=== PATIENT | female | born 2005 | race African-American/Black ===

== ENCOUNTER 2023-04-17 15:35 | Emergency (ER) | payer OTHER ==
[~2023-04-17] VITALS: Ht 167.6 cm; Wt 67.0 kg
[2023-04-17 15:43] VITALS: BP 105/68; PULSE 75; RESP 18; TEMP 99; O2SAT 98
[2023-04-17] MEDS ORDERED: ERYT60SO TP (16:38)
[2023-04-17] MEDS ORDERED: BENZ100C86 MT (16:38)
== END 2023-04-17 22:11 | disposition home or self-care (01) ==
LOC: ER 15:35
DX: J06.9 Acute upper respiratory infection, unspecified (principal); H10.9 Unspecified conjunctivitis
CPT/HCPCS: 99281; 99283

== ENCOUNTER 2023-06-26 16:50 | Emergency (ER) | payer OTHER, MEDICAID ==
[~2023-06-26] VITALS: Ht 167.6 cm; Wt 59.0 kg
[~2023-06-26 16:50] MED LIST: BENZ100C86 MT; ERYT60SO TP
[2023-06-26 16:56] VITALS: BP 129/83; PULSE 60; RESP 18; TEMP 98.8; O2SAT 100
[2023-06-26 17:17] LABS: BASOPHILS % 0.6 % (0.0-2.0); EOSINOPHILS % 0.3 % (0.0-5.0); HEMATOCRIT. 36.5 % (36.0-48.0); HEMOGLOBIN. 12.5 g/dL (12.0-16.0); LYMPHOCYTES % 21.2 % (20.0-50.0); MEAN CORPUSCULAR HEMOGLOBIN 29.1 pg (28.0-32.0); MEAN CORPUSCULAR HGB CONC 34.3 g/dL (31.0-37.0); MEAN CORPUSCULAR VOLUME 84.9 fL (81.0-99.0); MEAN PLATELET VOLUME 8.7 fl (7.4-10.4); MONOCYTES % 6.7 % (2.0-8.0); NEUTROPHILS % 71.2 % (40.0-76.0); PLATELET 215 x1000/uL (130-400); RED CELL DISTRIBUTION WIDTH 13.2 % (11.6-14.6); WHITE BLOOD COUNT 7.5 x1000/uL (4.5-11.0)
[2023-06-26 17:35] LABS: ALANINE AMINOTRANSFERASE 13 IU/L (10-49); ALBUMIN 5.6 g/dL (3.2-4.8); ASPARTATE AMINOTRANSFERASE 17 IU/L (<34); BILIRUBIN TOTAL 1.5 mg/dL (0.1-1.0); CALCIUM 10.1 mg/dL (8.7-10.4); CARBON DIOXIDE 23 mEq/L (21-32); CHLORIDE 104 mEq/L (98-107); CREATININE 0.8 mg/dL (0.6-1.0); GLUCOSE 77 mg/dL (70-105); POTASSIUM 3.5 mEq/L (3.5-5.1); PROTEIN TOTAL 9.1 g/dL (6.0-8.3); SODIUM 137 mEq/L (136-145); UREA NITROGEN BLOOD 10 mg/dL (9-23)
[2023-06-26] MEDS ORDERED: MAGNESIUM/ALUMINUM HYDROXIDE/SIMETHICONE 30ML UDC PO STA (19:06)
[2023-06-26] MEDS ORDERED: ONDANSETRON HCL 4MG/2ML INJ IV STA (19:06)
[2023-06-26] MEDS ORDERED: SODIUM CHLORIDE 0.9% 1,000 ML IV ONE (19:15)
[2023-06-26 20:29] LABS: BETA HYDROXYBUTYRATE 1.1 mMol/L (0.0-0.3)
[2023-06-26 21:35] LABS: CLARITY URINE CLOUDY (CLEAR); COLOR URINE YELLOW (YELLOW); GLUCOSE URINE NEGATIVE (NEGATIVE); KETONES URINE 4+ (NEGATIVE); LEUKOCYTE ESTERASE URINE NEGATIVE (NEGATIVE); NITRITE URINE NEGATIVE (NEGATIVE); OCCULT BLOOD URINE NEGATIVE (NEGATIVE); PH URINE 5.5 (4.5-8.0); PROTEIN URINE TRACE (NEGATIVE); SPECIFIC GRAVITY URINE 1.018 (1.005-1.030)
[2023-06-26 21:49] LABS: RBC URINE 0-2 /hpf (0-2); WBC URINE 0-2 /hpf (0-2)
[2023-06-26 21:50] LABS: BACTERIA URINE 3+; SQUAMOUS EPITHELIAL CELL URINE 3+ /lpf (RARE/1+)
[2023-06-26] MEDS ORDERED: ONDA4TAB11 PO (21:53)
[2023-06-26] MEDS ORDERED: DOXY1TAB3 MT (21:53)
== END 2023-06-26 23:24 | disposition home or self-care (01) ==
LOC: ER 16:50
DX: O21.0 Mild hyperemesis gravidarum (principal); Z3A.01 Less than 8 weeks gestation of pregnancy
CPT/HCPCS: 80053; 81003; 82010; 84702; 83690; 85025; 36415; 76801; 76817; 99284; J2405; J7030; Z7610 ×3

== ENCOUNTER 2023-09-08 11:05 | Emergency (ER) | payer MEDICAID, OTHER ==
[~2023-09-08] VITALS: Ht 172.7 cm; Wt 80.0 kg
[~2023-09-08 11:05] MED LIST changes: +DOXY1TAB3 MT; +ONDA4TAB11 PO
[2023-09-08 11:10] VITALS: O2SAT 100
[2023-09-08 11:24] LABS: CLARITY URINE CLOUDY (CLEAR); COLOR URINE YELLOW (YELLOW); GLUCOSE URINE NEGATIVE (NEGATIVE); KETONES URINE 3+ (NEGATIVE); LEUKOCYTE ESTERASE URINE NEGATIVE (NEGATIVE); NITRITE URINE NEGATIVE (NEGATIVE); OCCULT BLOOD URINE NEGATIVE (NEGATIVE); PROTEIN URINE TRACE (NEGATIVE); SPECIFIC GRAVITY URINE 1.017 (1.005-1.030); UROBILINOGEN URINE 0.2 E.U./dL (0.2-1.0)
[2023-09-08 11:33] LABS: BACTERIA URINE 2+; RBC URINE 0-2 /hpf (0-2); SQUAMOUS EPITHELIAL CELL URINE 3+ /lpf (RARE/1+); YEAST URINE NONE SEEN
[2023-09-08 12:08] LABS: BASOPHILS % 0.2 % (0.0-2.0); HEMATOCRIT. 35.1 % (36.0-48.0); HEMOGLOBIN. 11.7 g/dL (12.0-16.0); LYMPHOCYTES % 8.1 % (20.0-50.0); MEAN CORPUSCULAR HEMOGLOBIN 28.9 pg (28.0-32.0); MEAN CORPUSCULAR HGB CONC 33.4 g/dL (31.0-37.0); MEAN CORPUSCULAR VOLUME 86.7 fL (81.0-99.0); MEAN PLATELET VOLUME 9.3 fl (7.4-10.4); MONOCYTES % 8.2 % (2.0-8.0); NEUTROPHILS % 83.5 % (40.0-76.0); PLATELET 138 x1000/uL (130-400); RED BLOOD CELL COUNT 4.05 mill/uL (4.2-5.4); RED CELL DISTRIBUTION WIDTH 13.2 % (11.6-14.6); WHITE BLOOD COUNT 7.5 x1000/uL (4.5-11.0)
[2023-09-08 12:11] LABS: CHLORIDE 108 mEq/L (98-107); POTASSIUM 3.7 mEq/L (3.5-5.1); SODIUM 140 mEq/L (136-145)
[2023-09-08 12:12] LABS: CALCIUM 9.7 mg/dL (8.7-10.4); CARBON DIOXIDE 22 mEq/L (21-32)
[2023-09-08 12:17] LABS: CREATININE 0.8 mg/dL (0.6-1.0); GLUCOSE 86 mg/dL (70-105); UREA NITROGEN BLOOD 8 mg/dL (9-23)
[2023-09-08 12:19] LABS: ALANINE AMINOTRANSFERASE 13 IU/L (10-49); ALBUMIN 4.7 g/dL (3.2-4.8); ASPARTATE AMINOTRANSFERASE 16 IU/L (<34); BILIRUBIN DIRECT 0.3 mg/dL (<=3.0); BILIRUBIN TOTAL 0.7 mg/dL (0.1-1.0); PROTEIN TOTAL 7.6 g/dL (6.0-8.3)
[2023-09-08] MEDS: KETOROLAC 30MG/ML VIAL IM ONE (12:30)
[2023-09-08] MEDS: ONDANSETRON 4MG ODT PO ONE (12:30)
[2023-09-08] MEDS ORDERED: ASPI1TAB8 PO (13:13)
[2023-09-08] MEDS ORDERED: ASPI-1153 PO (13:20)
[2023-09-08] MEDS ORDERED: ONDA4TAB50 MT (13:20)
[2023-09-08] MEDS: ACETAMINOPHEN 325MG TABLET PO ONE (13:29)
[2023-09-08 14:01] VITALS: BP 124/78; PULSE 76; RESP 18; TEMP 98.6
== END 2023-09-08 14:03 | disposition home or self-care (01) ==
LOC: ER 11:05
DX: G43.809 Other migraine, not intractable, without status migrainosus (principal)
CPT/HCPCS: 99283; 80076; 80048; 81003; 81025; 83690; 85025; 36415; 96372; Q0162; J1885

== ENCOUNTER 2024-10-06 13:31 | Emergency (ER) | payer OTHER ==
[~2024-10-06] VITALS: Ht 167.6 cm; Wt 64.0 kg
[~2024-10-06 13:31] MED LIST changes: +ASPI-1153 PO; +ASPI1TAB8 PO; -ERYT60SO TP; +ERYT60SO16 TP; +ONDA-239 PO; -ONDA4TAB11 PO; +ONDA4TAB50 MT
[2024-10-06 13:34] VITALS: O2SAT 100
[2024-10-06 13:39] VITALS: BP 134/85; PULSE 70; RESP 20; TEMP 37.6; O2SAT 100
[2024-10-06] MEDS ORDERED: ONDANSETRON 4MG ODT PO ONE (14:30)
[2024-10-06 16:34] LABS: BASOPHILS % 0.2 % (0.0-2.0); EOSINOPHILS % 0.0 % (0.0-5.0); HEMATOCRIT. 35.1 % (36.0-48.0); HEMOGLOBIN. 11.8 g/dL (12.0-16.0); LYMPHOCYTES % 11.3 % (20.0-50.0); MEAN PLATELET VOLUME 9.9 fl (7.4-10.4); MONOCYTES % 4.0 % (2.0-8.0); NEUTROPHILS % 84.5 % (40.0-76.0); PLATELET 171 x1000/uL (130-400); RED BLOOD CELL COUNT 4.01 mill/uL (4.2-5.4); RED CELL DISTRIBUTION WIDTH 12.5 % (11.6-14.6)
[2024-10-06 16:52] LABS: CREATININE 1.0 mg/dL (0.6-1.0); UREA NITROGEN BLOOD 9 mg/dL (9-23)
[2024-10-06 16:54] LABS: ASPARTATE AMINOTRANSFERASE 21 IU/L (<34); BILIRUBIN DIRECT 0.3 mg/dL (<=3.0); BILIRUBIN TOTAL 0.8 mg/dL (0.1-1.0)
[2024-10-06 16:55] LABS: PROTEIN TOTAL 7.8 g/dL (6.0-8.3)
[2024-10-06 16:58] LABS: HCG SCREEN NEGATIVE
[2024-10-06] MEDS: SODIUM CHLORIDE 0.9% 1,000 ML IV ONE (17:09)
[2024-10-06] MEDS: ONDANSETRON HCL 4MG/2ML INJ IV STA (17:09)
[2024-10-06] MEDS: ACETAMINOPHEN 325MG TABLET PO ONE (17:09)
[2024-10-06 17:59] LABS: CLARITY URINE CLOUDY (CLEAR); COLOR URINE YELLOW (YELLOW); GLUCOSE URINE NEGATIVE (NEGATIVE); KETONES URINE 3+ (NEGATIVE); LEUKOCYTE ESTERASE URINE 2+ (NEGATIVE); NITRITE URINE NEGATIVE (NEGATIVE); OCCULT BLOOD URINE TRACE (NEGATIVE); PH URINE 8.0 (4.5-8.0); PROTEIN URINE TRACE (NEGATIVE); SPECIFIC GRAVITY URINE 1.015 (1.005-1.030); UROBILINOGEN URINE 0.2 E.U./dL (0.2-1.0)
[2024-10-06 18:13] LABS: BACTERIA URINE 1+; SQUAMOUS EPITHELIAL CELL URINE 1+ /lpf (RARE/1+)
[2024-10-06] MEDS: KETOROLAC 15MG/ML VIAL IV ONE (18:27)
[2024-10-06] MEDS ORDERED: CEPH500T MT (18:40)
== END 2024-10-06 19:28 | disposition home or self-care (01) ==
LOC: ER 13:31
DX: K29.70 Gastritis, unspecified, without bleeding (principal); N39.0 Urinary tract infection, site not specified; Z79.899 Other long term (current) drug therapy
CPT/HCPCS: 80076; 80048; 81003; 81025; 84703; 83690; 85025; 36415; 96361; 96374; 96375; 99284; J1885; J2405; J7030; Z7610 ×2